=== PATIENT | female | born 1970 | race Caucasian/White ===

== ENCOUNTER → 2020-08-31 | Emergency (ER) | payer BC ==
[~2020-08-31] VITALS: Ht 167.6 cm; Wt 78.9 kg
[~2020-08-31] MED LIST: HYDR-4209 PO; KETOROLAC TROMETHAMINE INJ 30 MG/ML VIAL ONE; KETOROLAC TROMETHAMINE INJ 60 MG/2 ML VIAL IM ONE; MORPHINE SULFATE INJ 2 MG/ML DISP.SYRIN IM ONE; MORPHINE SULFATE INJ 4 MG/ML DISP.SYRIN ONE; OXYC-131 PO
--- NOTE | 2020-08-31 12:03 | NUR ---
PT REFUSED TORADOL, ERMD AWARE.
--- NOTE | 2020-08-31 12:07 | NUR ---
R shoulder pain since this morning s/p fall yesterday. PT AAOX4, VSS. RR EVEN & UNLABORED. DENIES CP, SOB, DIZZINESS, N/V AT THIS TIME. WILL CONT TO MONITOR.
--- NOTE | 2020-08-31 13:36 | NUR ---
Patient discharged to home in stable condition. Written and verbal after care instructions given. Patient verbalizes understanding of instruction.
[2020-08-31 13:37] VITALS: BP 94/58
== END ==
LOC: ER 10:53
DX: S42.291A Other displaced fracture of upper end of right humerus, initial encounter for closed fracture (principal); E11.9 Type 2 diabetes mellitus without complications; Z79.899 Other long term (current) drug therapy; W18.39XA Other fall on same level, initial encounter; Y93.89 Activity, other specified; Y92.89 Other specified places as the place of occurrence of the external cause; Y99.8 Other external cause status
CPT/HCPCS: 73030; 96372; 99283; J2270; J1885